=== PATIENT | female | born 1945 | race Two or more races ===

== ENCOUNTER 2016-08-03 12:17 | Emergency (ER) | payer MEDICARE, MEDICAID ==
[~2016-08-03] VITALS: Ht 154.9 cm; Wt 63.5 kg
[~2016-08-03 12:17] MED LIST: ALPR0.5T8 PO; AMLO1TAB15 PO; ASPI81TA2 PO; ATOR10TA PO; CLON0.1T PO; CLOP75TA2 PO; ESCI10TA PO; METF500T4 PO; METO-302 PO
[2016-08-03] MEDS ORDERED: MORPHINE SULFATE INJ 4 MG/ML DISP.SYRIN ONE (12:43)
[2016-08-03] MEDS ORDERED: ONDANSETRON HCL/PF 4 MG/2 ML VIAL ONE (12:43)
[2016-08-03 12:52] LABS: BASOPHILS % (AUTO) 0.4 % (0.0-2.0); DIFF TOTAL % 100 %; EOSINOPHILS % (AUTO) 0.7 % (0.0-6.0); HEMATOCRIT 31 % (33-45); LYMPHOCYTES % (AUTO) 9.5 % (20.0-44.0); MEAN CORPUSCULAR HEMOGLOBIN 29 PG (26.0-33.0); MEAN CORPUSCULAR HGB CONC 32 g/dl (31.0-36.0); MEAN CORPUSCULAR VOLUME 90 fL (82-100); MONOCYTES % (AUTO) 6.7 % (2.0-12.0); NEUTROPHILS % (AUTO) 82.7 % (43.0-81.0); PLATELET COUNT (AUTO) 306 /CMM (150-450); RED BLOOD CELL COUNT(AUTO) 3.45 MIL/uL (4.0-5.2)
[2016-08-03 12:58] LABS: WHITE BLOOD COUNT (AUTO) 14.1 K/uL (4.3-11.0)
[2016-08-03] MEDS ORDERED: ONDANSETRON HCL/PF 4 MG/2 ML VIAL IVP ONE (13:00)
[2016-08-03] MEDS ORDERED: MORPHINE SULFATE INJ 2 MG/ML DISP.SYRIN IV ONE (13:00)
[2016-08-03 13:08] LABS: CALCIUM, SERUM 9.7 mg/dL (8.5-10.1); CREATININE 1.2 mg/dL (0.6-1.3); POTASSIUM 3.9 mmol/L (3.5-5.1)
[2016-08-03 13:14] LABS: ALBUMIN 3.6 g/dL (3.4-5.0); BILIRUBIN,DIRECT 0.1 mg/dL (0.0-0.2); BILIRUBIN,TOTAL 0.5 mg/dL (0.2-1.0); INDIRECT BILIRUBIN 0.4 mg/dL (0.0-1.1); TOTAL PROTEIN, SERUM 7.3 g/dL (6.4-8.2)
[2016-08-03 13:58] LABS: ADD UA MICROSCOPIC NO; KETONES,URINE Negative (NEGATIVE); LEUKOCYTE ESTERASE ,URINE Negative (NEGATIVE); PH,URINE 6.5 (5.0-8.0)
[2016-08-03 14:09] VITALS: BP 125/62
[2016-08-03 14:50] LABS: BAND % (MANUAL) 5 % (0.0-5.0); LYMPHOCYTES % (MANUAL) 6 % (16-48)
[2016-08-03 14:51] LABS: EOSINOPHILS % (MANUAL) 1 % (0-4); METAMYELOCYTES % 2 % (0-0)
== END 2016-08-03 14:10 | disposition home or self-care (01) ==
LOC: ER 12:18
DX: M54.5 Low back pain (principal); I10 Essential (primary) hypertension; I25.10 Atherosclerotic heart disease of native coronary artery without angina pectoris; E78.00 Pure hypercholesterolemia, unspecified; E11.9 Type 2 diabetes mellitus without complications; Z95.1 Presence of aortocoronary bypass graft; Z79.82 Long term (current) use of aspirin
CPT/HCPCS: 36415; 72131-TC; 80048-TC; 80076-TC; 81000-TC; 85025-TC; A4606; J2270; J2405; Z7610

== ENCOUNTER 2020-04-17 13:45 | Inpatient (IN) | payer MEDICARE, OTHER ==
[~2020-04-17] VITALS: Ht 144.8 cm; Wt 61.7 kg
[~2020-04-17 13:45] MED LIST changes: +ASPI-1169 PO; -ASPI81TA2 PO; +CLOP75TA15 PO; -CLOP75TA2 PO; +METF-440 PO; -METF500T4 PO; -METO-302 PO; +METO25TA4 PO
--- NOTE | 2020-04-17 14:02 | NUR ---
BIBDAUGHTER. R FLANK PAIN SINCE YESTERDAY 05/01. TO ER BED 11, HOOKED TO MONITOR, CHANGED TO HOSP GOWN, WARM BLANKET PROVIDED, PATIENT AAO x 4, BREATHING EVEN AND UNLABORED, AWAITING MD MENA.
--- NOTE | 2020-04-17 14:23 | NUR ---
DR LEAL AT BEDSIDE
[2020-04-17] MEDS ORDERED: ONDANSETRON HCL/PF 4 MG/2 ML VIAL IVP ONE (14:30)
[2020-04-17] MEDS ORDERED: MORPHINE SULFATE INJ 2 MG/ML DISP.SYRIN IV ONE (14:30)
[2020-04-17] MEDS ORDERED: IV NS 0.9% 1,000 ML BAG IV ONE (14:30)
[2020-04-17 14:38] LABS: BASOPHILS # (AUTO) 0.1 /CMM (0.0-0.2); BASOPHILS % (AUTO) 1.2 % (0.0-2.0); HEMATOCRIT 32 % (33-45); HEMOGLOBIN 10.8 g/dL (11.5-14.8); LYMPHOCYTES # (AUTO) 1.3 /CMM (0.8-4.8); LYMPHOCYTES % (AUTO) 18.4 % (20.0-44.0); MEAN CORPUSCULAR HGB CONC 34 g/dl (31.0-36.0); MEAN CORPUSCULAR VOLUME 96 fL (82-100); MONOCYTES # (AUTO) 0.5 /CMM (0.1-1.30); MONOCYTES % (AUTO) 6.9 % (2.0-12.0); NEUTROPHILS # (AUTO) 5.2 /CMM (1.8-8.9); NEUTROPHILS % (AUTO) 71.5 % (43.0-81.0); PLATELET COUNT (AUTO) 291 /CMM (150-450); RED BLOOD CELL COUNT(AUTO) 3.34 MIL/uL (4.0-5.2); WHITE BLOOD COUNT (AUTO) 7.2 K/uL (4.3-11.0)
[2020-04-17] MEDS ORDERED: MORPHINE SULFATE INJ 4 MG/ML DISP.SYRIN ONE (14:38)
[2020-04-17] MEDS ORDERED: ONDANSETRON HCL/PF 4 MG/2 ML VIAL ONE (14:38)
[2020-04-17 14:49] LABS: CALCIUM, SERUM 9.6 mg/dL (8.5-10.1); CREATININE 1.2 mg/dL (0.6-1.3); POTASSIUM 4.4 mmol/L (3.5-5.1)
[2020-04-17 14:55] LABS: ALBUMIN 3.8 g/dL (3.4-5.0); BILIRUBIN,DIRECT 0.1 mg/dL (0.0-0.2); BILIRUBIN,TOTAL 0.5 mg/dL (0.2-1.0); TOTAL PROTEIN, SERUM 7.1 g/dL (6.4-8.2)
[2020-04-17 15:50] LABS: APPEARANCE,URINE Clear (CLEAR); BILIRUBIN,URINE Negative (NEGATIVE); BLOOD, URINE Negative Ery/uL (NEGATIVE); COLOR,URINE Yellow (YELLOW); KETONES,URINE Negative (NEGATIVE); LEUKOCYTE ESTERASE ,URINE Negative (NEGATIVE); NITRITE, URINE Negative (NEGATIVE); PROTEIN,URINE Negative (NEGATIVE); UGLUCOSE Negative (NEGATIVE); UROBILINOGEN,URINE 0.2 EU/dL (0.2)
--- NOTE | 2020-04-17 16:06 | NUR ---
PATIENT IN BED AWAKE, HOOKED TO MONITOR, VSS. WILL CONTINUE TO MONITOR ACCORDINGLY
--- NOTE | 2020-04-17 17:12 | NUR ---
CALLED DR. JACOB.
[2020-04-17] MEDS ORDERED: OMEG1CAP PO (17:39)
[2020-04-17] MEDS ORDERED: AMLO10TA7 PO (17:39)
[2020-04-17] MEDS ORDERED: MAGN400T26 PO (17:39)
[2020-04-17] MEDS ORDERED: HYDR-4076 PO (17:39)
[2020-04-17] MEDS ORDERED: OMEP40CA13 PO (17:39)
[2020-04-17] MEDS ORDERED: NITR0.4T48 SL (17:39)
[2020-04-17] MEDS ORDERED: EVOL140P3 SQ (17:39)
[2020-04-17] MEDS ORDERED: IRBE300T19 PO (17:39)
[2020-04-17] MEDS ORDERED: CARV25TA2 PO (17:39)
--- NOTE | 2020-04-17 18:04 | NUR ---
CALLED NURSING SUPP FOR TELE BED.
--- NOTE | 2020-04-17 18:21 | NUR ---
PATIENT IN BED AWAKE, HOOKED TO MONITOR, 10/30 PS R ABDOMINAL PAIN. WILL CONTINUE TO MONITOR. KEPT WARM AND COMFORTABLE
--- NOTE | 2020-04-17 19:03 | NUR ---
RAPID COVID SWAB DONE AND SENT TO LAB.
--- NOTE | 2020-04-17 19:25 | NUR ---
REPORT GIVEN TO TAMERA DARDEN FOR ETIENNE
--- NOTE | 2020-04-17 19:49 | NUR ---
LAB CALLED, PATIENT IS COVID NEGATIVE.
--- NOTE | 2020-04-17 20:12 | NUR ---
ROOM ASSIGNMENT: 326-1
--- NOTE | 2020-04-17 20:55 | NUR ---
REPORT GIVEN TO LORRIE DARDEN FOR ETIENNE.
--- NOTE | 2020-04-17 21:29 | NUR ---
PATIENT TAKEN UP TO ASSIGNED ROOM.
[2020-04-17 21:30] VITALS: BP 154/71
--- NOTE | 2020-04-17 21:30 | NUR ---
FINISHING ROOM SUPERVISOR NOTES Received patient from ER accompanied by 2 ER staff jeronimo luis. Admitted to [facility] 326-1 under the service of Dr. Edwar Linn due to possible appendicitis. Transferred to bed comfortably, assisted to ambulate, steady gait noted. Admission routine done. Pt refused skin assessment at this time, per patient she has no skin issues. Admission orders noted and carried out. Kept pt on bed clean, dry and comfortable. Call light within easy reach. On fall and aspiration precautions. Will continue to monitor accordingly.
--- NOTE | 2020-04-17 22:39 | NUR ---
Admitting MD Dr. Fito Burch.
[2020-04-17] MEDS ORDERED: ACETAMINOPHEN 325 MG TABLET PO PRN (23:00)
[2020-04-17] MEDS ORDERED: NITROGLYCERIN 0.4 MG/TAB BOTTLE SL PRN (23:00)
[2020-04-17] MEDS ORDERED: Z GUARD REMEDY 2 OZ OINT TP PRN (23:00)
[2020-04-17] MEDS ORDERED: ONDANSETRON HCL/PF 4 MG/2 ML VIAL IVP PRN (23:00)
[2020-04-18 00:20] VITALS: BP 101/50
[2020-04-18 04:45] VITALS: BP 110/55
--- NOTE | 2020-04-18 06:37 | NUR ---
RN CLOSING NOTES Pt asleep on bed, on RA. No new complaints made. BP monitored accordingly. All nursing needs attended, due meds given as ordered. Kept on bed clean, dry and comfortable. Endorsed.
[2020-04-18 07:00] LABS: BASOPHILS % (AUTO) 0.9 % (0.0-2.0); EOSINOPHILS % (AUTO) 4.6 % (0.0-6.0); HEMATOCRIT 30 % (33-45); HEMOGLOBIN 10.2 g/dL (11.5-14.8); LYMPHOCYTES # (AUTO) 1.2 /CMM (0.8-4.8); LYMPHOCYTES % (AUTO) 27.6 % (20.0-44.0); MEAN CORPUSCULAR HGB CONC 34 g/dl (31.0-36.0); MEAN CORPUSCULAR VOLUME 94 fL (82-100); MONOCYTES # (AUTO) 0.4 /CMM (0.1-1.30); MONOCYTES % (AUTO) 9.7 % (2.0-12.0); NEUTROPHILS # (AUTO) 2.5 /CMM (1.8-8.9); NEUTROPHILS % (AUTO) 57.2 % (43.0-81.0); PLATELET COUNT (AUTO) 258 /CMM (150-450); RED BLOOD CELL COUNT(AUTO) 3.14 MIL/uL (4.0-5.2); WHITE BLOOD COUNT (AUTO) 4.5 K/uL (4.3-11.0)
--- NOTE | 2020-04-18 07:36 | NUR ---
RN NOTES Received patient in bed resting comfortably in moderate high back rest. No signs of distress noted at this time. IV access on Right hand #18, patent and intact. safety precautions for fall remains engaged, call light in reach, will continue to monitor.
[2020-04-18 07:52] LABS: CALCIUM, SERUM 8.8 mg/dL (8.5-10.1); CREATININE 1.2 mg/dL (0.6-1.3); MAGNESIUM 1.3 mg/dL (1.8-2.4); PHOSPHORUS 4.4 mg/dL (2.5-4.9); POTASSIUM 3.9 mmol/L (3.5-5.1)
[2020-04-18 08:00] VITALS: BP 134/59
[2020-04-18] MEDS: MAGNESIUM OXIDE 400 MG TABLET PO SCH (08:23)
[2020-04-18] MEDS: METFORMIN 500 MG TABLET PO SCH ×2 (08:23→16:12)
[2020-04-18] MEDS: ASPIRIN 81 MG TAB.CHEW PO SCH (08:23)
[2020-04-18] MEDS: hydrALAZINE HCL 25 MG TABLET PO SCH ×3 (08:24→16:13)
[2020-04-18] MEDS: AMLODIPINE BESYLATE 10 MG TABLET PO SCH (09:00)
[2020-04-18] MEDS: CARVEDILOL 12.5 MG TABLET PO SCH ×2 (09:00→16:13)
[2020-04-18] MEDS: VALSARTAN 80 MG TABLET PO SCH ×2 (09:00→20:22)
--- NOTE | 2020-04-18 09:45 | NUR ---
RN NOTES RECHECKED BP AFTER GIVING HYDRALAZINE 25 MG, WENT DOWN TO 130/50, HELD OTHER BP MED. NO SIGNS OF DISTRESS OR DISCOMFORT AT THIS TIME. WILL CONTINUE TO MONITOR.
[2020-04-18] MEDS: Magnesium 1GM/D5W 100ML PREMIX 100 ML IV SCH ×2 (11:31→12:46)
[2020-04-18 16:00] VITALS: BP 145/77
[2020-04-18] MEDS: IV NS 0.9% 1,000 ML IV PRN (16:02)
--- NOTE | 2020-04-18 17:00 | NUR ---
RN NOTES SEEN AND EXAMINED BY DR. VARGAS, ORDER FOR TROP STAT, PER MD TO DC PATIENT HOME IF TROP DECREASE, WILL CONTINUE TO MONITOR.
[2020-04-18] MEDS: ATORVASTATIN 40 MG TABLET PO SCH (17:17)
--- NOTE | 2020-04-18 18:45 | NUR ---
RN NOTES Patient in bed resting comfortably in moderate high back rest. No signs of distress noted throughout the shift. IV access on Right hand #18 with NS running @70 ml/hr, patent and intact. safety precautions for fall remains engaged, call light in reach, will endorse to rn night nurse for lamine.
--- NOTE | 2020-04-18 19:00 | NUR ---
RN NOTES DR. VARGAS ORDER NORCO 5/325 MG PO EVERY 6 HOURS, ORDER MADE AND CARRIED OUT. WILL CONTINUE TO MONITOR.
--- NOTE | 2020-04-18 19:15 | NUR ---
RN OPENING NOTES Received patient A/O x4, awake on bed. On RA. No complaints of pain at this time. PT noted mildly anxious, easy to calm down. Explained to patient the timing of her BP meds, daughter on the phone to interpret. Pt verbalized understanding. Kept on bed clean, dry and comfortable. Call light within easy reach. Will continue to monitor.
[2020-04-18 20:00] VITALS: BP 164/72
[2020-04-18] MEDS ORDERED: ALPRAZOLAM 0.25 MG TABLET PO ONE (21:30)
[2020-04-18 22:20] VITALS: BP 125/74
[2020-04-18] MEDS ORDERED: PIPERACILLIN /TAZOBACTAM 3.375 G VIAL IV ONE (22:32)
[2020-04-18] MEDS: ZOSYN IVPB 3.375 G in IV D5W 50ml IV SCH (22:37)
[2020-04-19] MEDS ORDERED: PIPERACILLIN /TAZOBACTAM 3.375 G VIAL IV ONE (03:59)
[2020-04-19] MEDS: ZOSYN IVPB 3.375 G in IV D5W 50ml IV SCH (04:11)
[2020-04-19] MEDS: IV NS 0.9% 1,000 ML IV PRN ×2 (06:01→23:38)
[2020-04-19 06:57] LABS: BASOPHILS % (AUTO) 0.9 % (0.0-2.0); EOSINOPHILS % (AUTO) 5.7 % (0.0-6.0); HEMATOCRIT 29 % (33-45); HEMOGLOBIN 10.1 g/dL (11.5-14.8); LYMPHOCYTES # (AUTO) 1.1 /CMM (0.8-4.8); LYMPHOCYTES % (AUTO) 26.5 % (20.0-44.0); MEAN CORPUSCULAR HGB CONC 34 g/dl (31.0-36.0); MEAN CORPUSCULAR VOLUME 94 fL (82-100); MONOCYTES # (AUTO) 0.4 /CMM (0.1-1.30); MONOCYTES % (AUTO) 9.9 % (2.0-12.0); NEUTROPHILS # (AUTO) 2.4 /CMM (1.8-8.9); PLATELET COUNT (AUTO) 253 /CMM (150-450); RED BLOOD CELL COUNT(AUTO) 3.11 MIL/uL (4.0-5.2); WHITE BLOOD COUNT (AUTO) 4.3 K/uL (4.3-11.0)
--- NOTE | 2020-04-19 07:10 | NUR ---
MS RN OPENING NOTE RECEIVED PT AWAKE IN BED AT THIS TIME. AOX4. FARSI SPEAKING. NO SOB NOTED, NO S/S OF ANY ACUTE DISTRESS NOTED. NO C/O PAIN AT THIS TIME. RESPIRATIONS ARE EVEN AND UNLABORED. IV ACCESS NOTED IN RIGHT HAND G#18, PATENT, INTACT AND FLUSHING WELL. FALL AND SAFETY PRECAUTION IN PLACE AND MAINTAINED AT ALL TIMES. BED IN LOWEST LOCKED POSITION, HOB ELEVATED, SIDE RAILS UP X 2, CALL LIGHT WITHIN REACH. WILL CONTINUE TO MONITOR
[2020-04-19 07:17] LABS: ALBUMIN 3.2 g/dL (3.4-5.0); BILIRUBIN,TOTAL 0.5 mg/dL (0.2-1.0); CALCIUM, SERUM 8.4 mg/dL (8.5-10.1); CREATININE 1.1 mg/dL (0.6-1.3); PHOSPHORUS 3.2 mg/dL (2.5-4.9); POTASSIUM 3.6 mmol/L (3.5-5.1); TOTAL PROTEIN, SERUM 6.1 g/dL (6.4-8.2)
--- NOTE | 2020-04-19 07:29 | NUR ---
RN CLOSING NOTES Pt asleep on bed. No new complaints made. Noted able to sleep within the shift. BP managed with medication and calming the patient. Medication for anxiety, noted effective. All nursing needs attended, due meds given as ordered. Kept on bed clean, dry and comfortable. Call light within easy reach. On fall and aspiration precautions. Endorsed.
[2020-04-19 08:00] VITALS: BP 143/69
[2020-04-19] MEDS: HYDROCODONE/APAP 5/325MG TABLET PO PRN ×3 (08:45→22:40)
--- NOTE | 2020-04-19 08:45 | NUR ---
PT C/O RIGHT FLANK ACHING PAIN OF 5/10. PT NOTED WITH FACIAL GRIMACE AND GRASPING. VS WNL. PER PT REQUEST, NORCO 5-325MG PO Q6HR PRN ADMINISTERED AT THIS TIME PER ORDER. WILL CONTINUE TO MONITOR
[2020-04-19] MEDS: MAGNESIUM OXIDE 400 MG TABLET PO SCH (08:57)
[2020-04-19] MEDS: ASPIRIN 81 MG TAB.CHEW PO SCH (08:57)
[2020-04-19] MEDS: VALSARTAN 80 MG TABLET PO SCH ×2 (08:58→20:22)
[2020-04-19] MEDS: METFORMIN 500 MG TABLET PO SCH ×2 (08:58→16:33)
[2020-04-19] MEDS: CARVEDILOL 12.5 MG TABLET PO SCH ×2 (08:59→16:33)
[2020-04-19] MEDS: AMLODIPINE BESYLATE 10 MG TABLET PO SCH (08:59)
[2020-04-19] MEDS: hydrALAZINE HCL 25 MG TABLET PO SCH ×3 (08:59→16:32)
[2020-04-19] MEDS: PIPERACILLIN /TAZOBACTAM 3.375 G in IV D5W 50 ML IV SCH ×3 (11:58→23:36)
--- NOTE | 2020-04-19 12:25 | NUR ---
PT C/O RIGHT HAND IV PAIN. IV INFILTRATED. PT DISCONNECTED FROM IV, IV ACCESS REMOVED, PRESSURE APPLIED, SECURED WITH GAUZE AND TAPE. NO SIGN OF BLEEDING NOTED. ICE PACK APPLIED. WILL CONTINUE TO MONITOR Addendum: 04/19/20 at 1239 by CAMRON BARTH RN PT C/O RIGHT HAND IV PAIN. IV INFILTRATED. PT DISCONNECTED FROM IV, IV ACCESS REMOVED, PRESSURE APPLIED, SECURED WITH GAUZE AND TAPE. NO SIGN OF BLEEDING NOTED. ICE PACK APPLIED. HAND ELEVATED ON A PILLOW. WILL CONTINUE TO MONITOR
--- NOTE | 2020-04-19 12:30 | NUR ---
NEW IV ACCESS INSERTED IN RIGHT HAND G#20, INTACT, PATENT AND FLUSHING WELL AT THIS TIME. GOOD BLOOD RETURN NOTED. WILL CONTINUE TO MONITOR
[2020-04-19 16:00] VITALS: BP 123/57
--- NOTE | 2020-04-19 16:40 | NUR ---
PT C/O RIGHT FLANK ACHING, THROBBING PAIN OF 6/10. PT NOTED MOANING WITH FACIAL GRIMACE AND GRASPING. VS WNL. PER PT REQUEST, NORCO 5-325MG PO Q6HR PRN ADMINISTERED AT THIS TIME PER ORDER. WILL CONTINUE TO MONITOR
[2020-04-19] MEDS: ATORVASTATIN 40 MG TABLET PO SCH (18:00)
--- NOTE | 2020-04-19 18:39 | NUR ---
RN CLOSING NOTES PT AWAKE IN BED AT THIS TIME. PT REMAINED STABLE THROUGHOUT SHIFT. ALL CARE, NEEDS, MEDICATIONS AND TREATMENT ADMINISTERED ANTICIPATED PER ORDER. PAIN MANAGEMENT ADMINISTERED PER ORDER. SAFETY PRECAUTION IN PLACE AND MAINTAINED AT ALL TIMES. BED IN LOWEST LOCKED POSITION, HOB ELEVATED, RAILS UP X 2, CALL LIGHT WITHIN REACH. WILL ENDORSE TO MEDICAL RECORD TECHNICIAN NURSE FOR ETEINNE
--- NOTE | 2020-04-19 19:30 | NUR ---
MS RN OPEN NOTES PATIENT IS TALKING ON THE PHONE AND WATCHING TV. A/O X4. ON RA, NO SOB/ ACUTE RESPIRATORY DISTRESS NOTED. IV IN L HAND #20G IS PATENT AND INTACT. BED IS IN LOWEST LOCKED POSITION WITH SIDE RAILS UP X3, SEMI FOWLERS. CALL LIGHT IS WITHIN REACH. WILL CONTINUE TO MONITOR.
[2020-04-19 20:00] VITALS: BP 112/67
--- NOTE | 2020-04-19 22:50 | NUR ---
MS RN NOTES PT REQUESTED FOR MEDICATION TO HELP HER SLEEP. NOTIFIED DR IN WHICH HE REPLIED AMBIEN 5MG PO X1. ORDER NOTED AND CARRIED OUT.
[2020-04-19] MEDS ORDERED: ZOLPIDEM TARTRATE 5 MG TABLET PO ONE (23:00)
[2020-04-20] MEDS: PIPERACILLIN /TAZOBACTAM 3.375 G in IV D5W 50 ML IV SCH ×2 (05:32→13:13)
--- NOTE | 2020-04-20 06:50 | NUR ---
MS RN CLOSE NOTES PATIENT IS LAYING IN BED. A/O X4. ON RA, NO SOB/ ACUTE RESPIRATORY DISTRESS NOTED. IV IN L HAND #20G IS PATENT AND INTACT RUNNING NS @70 MLS/HR. PT IS ABLE TO AMBULATE. BED IS IN LOWEST LOCKED POSITION WITH SIDE RAILS UP X2, SEMI FOWLERS. CALL LIGHT IS WITHIN REACH. WILL ENDORSE TO AM NURSE.
[2020-04-20 08:00] VITALS: BP 171/66
[2020-04-20] MEDS ORDERED: HYDR-4384 PO (08:43)
[2020-04-20] MEDS ORDERED: CIPR-262 PO (08:43)
[2020-04-20] MEDS ORDERED: METR500T PO (08:43)
[2020-04-20] MEDS: HYDROCODONE/APAP 5/325MG TABLET PO PRN ×2 (08:52→16:47)
[2020-04-20] MEDS: METFORMIN 500 MG TABLET PO SCH ×2 (08:52→16:47)
[2020-04-20] MEDS: hydrALAZINE HCL 25 MG TABLET PO SCH ×2 (08:53→14:09)
[2020-04-20] MEDS: ASPIRIN 81 MG TAB.CHEW PO SCH (08:53)
[2020-04-20] MEDS: MAGNESIUM OXIDE 400 MG TABLET PO SCH (08:54)
[2020-04-20] MEDS: CARVEDILOL 12.5 MG TABLET PO SCH ×2 (08:54→16:48)
[2020-04-20] MEDS: AMLODIPINE BESYLATE 10 MG TABLET PO SCH (08:54)
--- NOTE | 2020-04-20 09:00 | NUR ---
alert and oriented x3.skin warm and dry.vs stable.iv infusing.
[2020-04-20] MEDS: VALSARTAN 80 MG TABLET PO SCH (11:18)
[2020-04-20 16:00] VITALS: BP 137/78
[2020-04-20 16:48] VITALS: BP 137/78
--- NOTE | 2020-04-20 18:15 | NUR ---
rn spoke with dtr. several times.medicated x 2 for pain with norco.hep lock out. with aircraft powerplant repairer gave pt. instructions.speaks farsi.instructed on s/s to report or to come to er if needed,has rxs with dc instructions.taken to lobby by [email or web address] lobby.
== END 2020-04-20 18:15 | disposition home or self-care (01) | DRG 393 ==
LOC: ER 14:27 → TELE 20:15 → MED 23:08
PROVIDERS: ADMIT Nurse Practitioner Acute Care; ATTEND Nurse Practitioner Acute Care
DX: K35.80 Unspecified acute appendicitis (principal); I21.A1 Myocardial infarction type 2; N17.0 Acute kidney failure with tubular necrosis; E87.1 Hypo-osmolality and hyponatremia; I25.10 Atherosclerotic heart disease of native coronary artery without angina pectoris; F41.9 Anxiety disorder, unspecified; F32.9 Major depressive disorder, single episode, unspecified; I50.9 Heart failure, unspecified; I11.0 Hypertensive heart disease with heart failure; I25.2 Old myocardial infarction; E78.5 Hyperlipidemia, unspecified; E11.9 Type 2 diabetes mellitus without complications; Z95.1 Presence of aortocoronary bypass graft; Z79.899 Other long term (current) drug therapy; Z79.82 Long term (current) use of aspirin; Z79.02 Long term (current) use of antithrombotics/antiplatelets; Z79.84 Long term (current) use of oral hypoglycemic drugs; K37 Unspecified appendicitis; Z68.29 Body mass index [BMI] 29.0-29.9, adult; D63.8 Anemia in other chronic diseases classified elsewhere
CPT/HCPCS: 36415; 71045-TC; 76705-TC; 80048-TC; 80053-TC; 80061-TC; 80076-TC; 81000-TC; 83690-TC; 83735-TC; 84100-TC; 84484-TC; 85025-TC; 85730-TC; 87081-TC; 87086-TC; 93307-TC; C9803-CS; G0378; J2270; J2405; J2543; J3475; J7030; J7060